=== PATIENT | male | born 1945 | race Caucasian/White ===

== ENCOUNTER → 2021-04-27 | Outpatient (CLI) | payer BC | LOC: RAD 16:30 | DX: M43.26 Fusion of spine, lumbar region (principal); G89.18 Other acute postprocedural pain; M43.16 Spondylolisthesis, lumbar region ==

== ENCOUNTER → 2021-08-29 | Outpatient (CLI) | payer BC | LOC: RAD 08:42 | DX: Z47.1 Aftercare following joint replacement surgery (principal); Z98.1 Arthrodesis status | CPT/HCPCS: 72110 ==

== ENCOUNTER → 2022-02-26 | Outpatient (CLI) | payer BC | LOC: HEART 5 14:45 | DX: I49.3 Ventricular premature depolarization (principal) ==

== ENCOUNTER → 2022-05-23 | Outpatient (CLI) | payer BC | LOC: LAB 11:55 | DX: Z20.822 Contact with and (suspected) exposure to COVID-19 (principal) | CPT/HCPCS: U0002 ==

== ENCOUNTER → 2022-06-16 | Outpatient (CLI) | payer BC ==
[2022-06-16 08:12] LABS: HEMOGLOBIN 15.1 gm/dl (14.0-17.5); RED BLOOD COUNT 4.61 M/UL (4.20-5.50); WHITE BLOOD COUNT 6.8 K/UL (4.5-11.0)
[2022-06-16 08:59] LABS: BUN/CREATININE RATIO 12 (0-10)
[2022-06-18 08:11] LABS: LIPOPROTEIN (A) 186.2 nmol/L (<75.0)
== END ==
LOC: LAB 07:40
PROVIDERS: Internal Medicine Cardiovascular Disease
DX: I10 Essential (primary) hypertension (principal); I65.29 Occlusion and stenosis of unspecified carotid artery; E78.5 Hyperlipidemia, unspecified; Z00.00 Encounter for general adult medical examination without abnormal findings
CPT/HCPCS: 36415; 80053; 80061; 83695; 84153; 85025; 86141